=== PATIENT | male | born 1945 | race Caucasian/White ===

== ENCOUNTER → 2016-09-19 | Outpatient (CLI) | payer MEDICARE ==
--- NOTE | 2016-09-19 14:56 | Diagnostic Imaging Report ---
EXAMINATION: CT chest without contrast. INDICATION: Screening for lung cancer. COMPARISON: There are no previous studies available for comparison. FINDINGS: Routine images of the thorax using lung screening protocol were obtained. In the right perihilar region, there is a small noncalcified nodular density measuring 5 x 6 x 6 mm. The margins of this density are not entirely smooth. This may still represent a benign process. Even so, I would recommend that a short-term (three-month) followup CT chest exam be performed for further study. This lesion is probably too small to be resolved by PET/CT. There is also a smaller 2 x 3 x 3 mm nodule in the right middle lobe (image 30 of 58). This finding is most likely benign as well and this density could be further evaluated on the followup exam as well. No other parenchymal lung mass is identified. There is a vague area of increased density in the anterior aspect of the right middle lobe. This may be secondary to scar formation. Pneumonia/atelectasis would be a less likely possibility but could also present in this manner. Clinical followup is recommended. The lungs are otherwise clear. There is no sign of a pleural effusion. There are mild emphysematous changes involving both lungs. The heart size is within normal limits. Coronary artery calcifications are evident. The aorta is not abnormally dilated. There is no mediastinal or hilar adenopathy although this exam is limited in evaluation of adenopathy due to the absence of intravenous contrast. Thyroid gland is partially obscured by streak artifact. There is no definite abnormality of the thyroid gland. The sections through the upper abdomen failed to show any sign of an acute abnormality. The bone windows are unremarkable for fracture or for destructive lesion. IMPRESSION: 1. There are two small nodules in the right midlung. These may well be benign but a short-term (three-month) followup CT chest exam would be recommended for further study. 2. The vague area of increased density in the anterior aspect of the right middle lobe may be secondary to scar formation of the lung. The possibility that there is an element of mild pneumonia/atelectasis should also be considered. Clinical followup is recommended. 3. There is no acute cardiopulmonary abnormality noted otherwise. 4. The heart is not enlarged but there are coronary artery calcifications evident. LUNG-RADS CATEGORY 4a: [address] recommended; may consider PET/CT Dictated by: Dictated on workstation # [id number]
== END ==
LOC: RAD 13:41
PROVIDERS: ATTEND Family Medicine
DX: J44.9 Chronic obstructive pulmonary disease, unspecified (principal); F17.210 Nicotine dependence, cigarettes, uncomplicated

== ENCOUNTER → 2016-12-05 | Outpatient (CLI) | payer MEDICARE, OTHER ==
--- NOTE | 2016-12-05 13:56 | Diagnostic Imaging Report ---
PROCEDURE: CT chest without contrast. TECHNIQUE: Multiple contiguous axial images were obtained through the chest without the use of intravenous contrast. INDICATION: Followup right pulmonary nodules. COMPARISON: 09/19/2016. DISCUSSION: The 3 mm and 5 mm nodules within the right middle lobe are stable. Atelectasis or scarring within the right middle lobe is stable. Underlying mild emphysema is noted bilaterally. No new nodule or consolidation identified. Normal heart size. No pleural or pericardial fluid. The thoracic aorta is normal in caliber and configuration. The pulmonary arteries are not dilated. No mediastinal, hilar, or axillary adenopathy. Scattered atherosclerotic disease is again demonstrated. The visualized upper abdomen is unremarkable. IMPRESSION: 1. Subcentimeter nodular densities within the right middle lobe appear stable. Recommend six-month CT followup to document further stability. 2. Emphysema. Dictated by: Dictated on workstation # [id number]
== END ==
LOC: RAD 13:06
PROVIDERS: ATTEND Family Medicine
DX: R91.1 Solitary pulmonary nodule (principal); J43.8 Other emphysema
CPT/HCPCS: 71250

== ENCOUNTER → 2017-12-14 | Outpatient (CLI) | payer MEDICARE, OTHER ==
--- NOTE | 2017-12-14 18:51 | Diagnostic Imaging Report ---
INDICATION: History of tobacco use with a 50 pack year history. Followup. TECHNIQUE: Noncontrast, low-dose CT imaging performed according to lung cancer screening protocol. COMPARISON: 09/19/2016, 12/05/2016 FINDINGS: HEART/MEDIASTINUM: Heart size is normal. Small anterior pericardial effusion. There are dense areas of coronary artery calcification. Mild wall calcification. Ascending aorta 3.4 cm. A few small but nonpathologic enlarged mediastinal lymph nodes are present. LUNGS: Advanced emphysematous changes about the lung parenchyma. No infiltrate. Small bleb present. Minimal areas of peribronchial thickening. Additionally, there are areas of scarlike formation about the right mid lung. Calcified granuloma lateral left mid lung. MEASURED PULMONARY NODULES: Tiny 3 mm nodule anterior basilar aspect of the right upper lobe appears smaller from baseline imaging (image 144 series 2). 4 mm nodule along the fissure plane anteriorly in the right mid lung (image 152/series 2) also appears stable. OTHER: None. IMPRESSION: 1. Stable to slightly smaller right-sided pulmonary nodules. No adverse interval change suggested. 2. Advanced emphysematous change about the lung parenchyma. LUNG-RADS CATEGORY: 2A. LUNG SCREENING MANAGEMENT/RECOMMENDATIONS: Continued annual screening with low dose CT in 12 months. Notes: Lung rads category 1 or 2 does not mean that an individual does not have lung cancer or other active disease process, but rather nothing is identified to meet criteria for current lung pathology. Therefore, continued annual lung cancer screening should be performed. It is noted that this is a low dose CT examination. As a technical result, the examination is limited in overall assessment compared to a conventional CT examination of the chest. Dictated by: Dictated on workstation # [id number]
== END ==
LOC: RAD 17:39
PROVIDERS: ATTEND Family Medicine
DX: Z12.2 Encounter for screening for malignant neoplasm of respiratory organs (principal); J43.9 Emphysema, unspecified; R91.8 Other nonspecific abnormal finding of lung field; Z87.891 Personal history of nicotine dependence

== ENCOUNTER → 2019-02-08 | Outpatient (CLI) | payer MEDICARE, OTHER ==
--- NOTE | 2019-02-08 20:38 | Diagnostic Imaging Report ---
INDICATION: Current smoker with 130-[id number] history for low-dose CT screening. COMPARISON: 12/14/2017. FINDINGS: Air trapping and features of centrilobular emphysema stable and chronic. Some very mild curvilinear juxta-fissural scarring in the right middle lobe and right upper lobe anteromedially unchanged. Subpleural micronodule 2-3 mm in right upper lobe unchanged. No new dominant or suspicious lung nodule. No suspicious-appearing thoracic lymph nodes. The aorta is nonaneurysmal. IMPRESSION: 1. Changes of centrilobular emphysema chronic. 2. Scattered subpleural micronodules stable and benign. 3. No suspicious finding. Lung rads category 2 - Benign appearance or behavior. Solid nodule(s): <6mm OR new <4mm. Continue annual screening with LDCT in 12 months. Dictated by: Dictated on workstation # [id number]
== END ==
LOC: RAD 13:39
PROVIDERS: ATTEND Family Medicine
DX: Z12.2 Encounter for screening for malignant neoplasm of respiratory organs (principal); J43.2 Centrilobular emphysema; R91.8 Other nonspecific abnormal finding of lung field; F17.210 Nicotine dependence, cigarettes, uncomplicated

== ENCOUNTER → 2020-02-17 | Outpatient (CLI) | payer MEDICARE, OTHER ==
--- NOTE | 2020-02-17 10:13 | Diagnostic Imaging Report ---
EXAMINATION: CT Chest without contrast (lung screening). TECHNIQUE: Multiple contiguous axial images were obtained through the chest without the use of intravenous contrast according to lung cancer screening protocol. All CT scans use one or more of the following dose optimizing techniques: automated exposure control, MA and/or KvP adjustment based on a patient size and exam type, or iterative reconstruction. HISTORY: 50 pack year history of smoking. COMPARISON: 02/08/2019 FINDINGS: There is no edema or pneumonia. No pleural effusion. No pneumothorax. No suspicious nodules. Heart size is normal. There are moderate coronary artery calcifications. No pericardial effusion. Aorta is normal in caliber. There is no axillary or supraclavicular lymphadenopathy. There is no mediastinal lymphadenopathy. Limited views of the upper abdomen are unremarkable. There are no suspicious osseus lesions. IMPRESSION: 1. No suspicious pulmonary nodules. LUNG-RADS CATEGORY: 1 MODIFIER: None. Dictated by: Dictated on workstation # [id number]
== END ==
LOC: RAD 09:35
PROVIDERS: ATTEND Family Medicine
DX: Z12.2 Encounter for screening for malignant neoplasm of respiratory organs (principal); F17.210 Nicotine dependence, cigarettes, uncomplicated

== ENCOUNTER → 2021-02-22 | Outpatient (CLI) | payer MEDICARE, OTHER ==
--- NOTE | 2021-02-22 17:48 | Diagnostic Imaging Report ---
EXAMINATION: CT chest without contrast (lung screening). TECHNIQUE: Multiple contiguous axial images were obtained through the chest without the use of intravenous contrast according to lung cancer screening protocol. All CT scans use one or more of the following dose optimizing techniques: automated exposure control, MA and/or KvP adjustment based on patient size and exam type or iterative reconstruction. HISTORY: 51 pack year history of smoking. COMPARISON: CT chest 02/17/2020 FINDINGS: Thyroid: The thyroid is normal. Mediastinum: Heart size is normal without significant pericardial effusion. Calcifications of the aorta and coronary vessels. Thoracic aorta is normal in caliber. No suspicious lymphadenopathy. Lungs and airways: There are background emphysematous changes of the lungs without consolidation, pleural effusion or pneumothorax. There are scattered areas of linear atelectasis or scarring, greatest in the medial left middle lobe. There are multiple stable bilateral pulmonary nodules which measure up to 0.4 cm in the right upper lobe. There are new right middle lobe pulmonary nodules measuring up to 0.5 x 0.3 cm (series 2 image 107). There are multiple new left upper lobe pulmonary nodules measuring up to 0.5 x 0.4 cm (series 2 image 31). The airways are normal. Upper abdomen: The subphrenic structures are normal. Musculoskeletal: No suspicious osseous lesion or compression fracture. IMPRESSION: 1. Multiple new bilateral pulmonary nodules measuring up to 0.4 cm in the right middle lobe and 0.5 cm in the left upper lobe. Recommend follow-up low-dose CT in 6 months. 2. Additional bilateral pulmonary nodules are unchanged. 3. COPD. LUNG-RADS CATEGORY: 3 MODIFIER: S Dictated on workstation # [id number]
== END ==
LOC: RAD 13:15
PROVIDERS: ATTEND Family Medicine
DX: Z12.2 Encounter for screening for malignant neoplasm of respiratory organs (principal); J44.9 Chronic obstructive pulmonary disease, unspecified; R91.8 Other nonspecific abnormal finding of lung field; F17.210 Nicotine dependence, cigarettes, uncomplicated
CPT/HCPCS: 71271

== ENCOUNTER → 2021-08-30 | Outpatient (CLI) | payer MEDICARE, OTHER ==
--- NOTE | 2021-08-30 16:32 | Diagnostic Imaging Report ---
PROCEDURE: CT chest without contrast. TECHNIQUE: Multiple contiguous axial images were obtained through the chest without the use of intravenous contrast. Auto Exposure Controls were utilized during the CT exam to meet ALARA standards for radiation dose reduction. DATE: August 30, 2021. COMPARISON: CT chest February 22, 2021. Additional CT chest imaging dating back to September 19, 2016. INDICATION: 75-year-old male, followup pulmonary nodules. PROCEDURE: Axial noncontrasted CT images of the chest. Noncontrasted limits the evaluation of the mediastinum and vascular structures. FINDINGS: There is a 6 mm right upper lobe pulmonary nodule. This is new since February 17, 2020. This previously measured approximately 5 mm in size on February 22, 2021. There is a pleurally based 4 mm right upper lobe pulmonary nodule on axial image 31 which is unchanged since the most recent comparison exam. There is a 5 mm right upper lobe pulmonary nodule on axial image 41 which is unchanged with a subjacent unchanged 2 mm pulmonary nodule. There are subjacent nodules in the right middle lobe on axial image 75 which collectively measure up to approximately 9 mm in maximum size. This is unchanged since the most recent comparison study. There is a 3 mm right upper lobe pulmonary nodule on axial image 81 which is unchanged. There are additional linear opacities in the right upper lobe, likely reflecting scarring and/or atelectasis. There are mild upper lobe predominant findings of emphysema. There is a 3 mm left upper lobe pulmonary nodule on axial image 28 which is unchanged. There is a 4 mm left upper lobe pulmonary nodule on axial image 45 which is unchanged since the most recent comparison study. There is a 3 mm left upper lobe pulmonary nodule on axial image 78 which is calcified and consistent with sequela of granulomatous disease. There is no additional focal airspace consolidation. There is no pneumothorax. There is no pleural effusion. The more central airways are patent. The heart is not enlarged. There is no pericardial effusion. There are coronary artery calcifications and additional areas of atherosclerotic disease. There is no identified abnormally enlarged mediastinal or axillary lymph node which meets CT size criteria for adenopathy. There is an incompletely imaged stent graft at the level of the abdominal aorta. 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 There is an exophytic low-attenuation right renal lesion measuring 2.1 cm in size on axial image 169 with an internal attenuation value of 5 Hounsfield units, consistent with a benign cyst. There is an incompletely imaged low-attenuation left renal lesion on axial image 185, compatible with a benign cyst in its imaged portions. There are multilevel degenerative changes of the spine. There is no identified acute bony abnormality. IMPRESSION: 1. Multiple subcentimeter pulmonary nodules as described above. There is a right upper lobe pulmonary nodule measuring 6 mm in size measuring slightly increased in size since February 22, 2021, previously at 5 mm in size. This nodule is new since February 17, 2020. There are additional pulmonary nodules which are new since January 2020 although are unchanged in size since February 22, 2021. Continued followup is recommended. 2. Mild upper lobe predominant findings of emphysema. Dictated by: Dictated on workstation # [id number]
== END ==
LOC: RAD 12:45
PROVIDERS: ATTEND Internal Medicine Critical Care Medicine
DX: J43.9 Emphysema, unspecified (principal); R91.8 Other nonspecific abnormal finding of lung field; F17.210 Nicotine dependence, cigarettes, uncomplicated
CPT/HCPCS: 71250

== ENCOUNTER → 2022-03-04 | Outpatient (CLI) | payer MEDICARE, OTHER ==
--- NOTE | 2022-03-04 13:33 | Diagnostic Imaging Report ---
EXAMINATION: CT chest without contrast. TECHNIQUE: Multiple contiguous axial images were obtained through the chest without the use of intravenous contrast. All CT scans use one or more of the following dose optimizing techniques: automated exposure control, MA and/or KvP adjustment based on patient size and exam type or iterative reconstruction. HISTORY: Chronic obstructive pulmonary disease COMPARISON: 08/30/2021 FINDINGS: There is no edema or pneumonia. No pleural effusion. No pneumothorax. There is a stable 4 mm right upper lobe nodule. A 6 x 8 mm nodule in the right upper lobe previously measured 4 x 6 mm (series 3, image 71). A 3 mm left upper lobe nodule is stable. No new nodules are seen. There is no axillary or supraclavicular lymphadenopathy. There is no mediastinal lymphadenopathy. Heart size is normal. There are severe coronary artery calcifications. No pericardial effusion. Aorta is normal in caliber. Limited views of the upper abdomen show a cyst in the right kidney and partially imaged endovascular repair of the abdominal aorta. There are no suspicious osseus lesions. IMPRESSION: 1. The right upper lobe nodule has mildly increased in size. Three-month follow-up recommended. Dictated by: Dictated on workstation # [id number]
== END ==
LOC: RAD 13:15
PROVIDERS: ATTEND Internal Medicine Critical Care Medicine
DX: R91.8 Other nonspecific abnormal finding of lung field (principal); J43.9 Emphysema, unspecified; F17.210 Nicotine dependence, cigarettes, uncomplicated
CPT/HCPCS: 71250